=== PATIENT | female | born 1980 | race Caucasian/White ===

== ENCOUNTER 2016-11-02 12:21 | Emergency (ER) | payer BC ==
[2016-11-02 14:05] VITALS: BP 126/66; PULSE 96; TEMP 97.3; BMI 26.4
[2016-11-02] MEDS ORDERED: ACETAMINOPHEN 325 MG TABLET (FP) PO ONE (14:27)
[2016-11-02] MEDS ORDERED: ACETAMINOPHEN 325 MG TABLET (FP) ONE (14:30)
--- NOTE | 2016-11-02 14:37 | PDOC ---
History of Present Illness - General Chief Complaint: Injury Stated Complaint: ANKLE PAIN Time Seen by Provider: 11/02/16 14:11 History Source: Patient Exam Limitations: No Limitations - History of Present Illness Initial Comments: 11/02/16 14:27 36 yr female slipped on [place] steps yesterday and twisted right ankle. Pt is 29 weeks did not fall on her stomach. Pt initially was having some pelvic pain so she was cleared by Labor and delivery prior to arrival. pt has no vaginal discharge or pain. Occurred: reports: yesterday Severity: Yes: moderate Lower Extremity Pain Location: right: ankle Lower Ext. Injury Location - Specific Injury Location Ankle: right pain Past History - Past Medical History Allergies/Adverse Reactions: Allergies Allergy/AdvReac Type Severity Reaction Status Date / Time Penicillins Allergy Verified 11/02/16 12:25 Home Medications: Ambulatory Orders NK [No Known Home Medication] 11/02/16 Other medical history: none - Psycho/Social/Smoking Cessation Hx Anxiety: No Suicidal Ideation: No Smoking History: Never smoked Have you smoked in the past 12 months: No Information on smoking cessation initiated: No Hx Alcohol Use: No Drug/Substance Use Hx: No Substance Use Type: None Review of Systems - Review of Systems Able to Perform ROS?: Yes Is the patient limited Sami proficient: No Constitutional: No: Symptoms Reported Musculoskeletal: Yes: Symptoms Reported *Physical Exam - Vital Signs Last Vital Signs Temp Pulse Resp BP Pulse Ox 97.3 F L 96 H 18 126/66 100 11/02/16 14:02 11/02/16 14:02 11/02/16 14:02 11/02/16 14:02 11/02/16 14:02 - Physical Exam General Appearance: Yes: Nourished, Appropriately Dressed HEENT: positive: EOMI, ARPITA Neck: positive: Supple Respiratory/Chest: positive: Lungs Clear, Normal Breath Sounds Cardiovascular: positive: Regular Rhythm, Regular Rate Extremity: positive: Normal Capillary Refill, Normal Inspection, Normal Range of Motion, Tender (lateral maleoulus no specific bony tenderness, nv intact no swelling ). negative: Swelling Integumentary: positive: Normal Color, Dry, Warm Neurologic: positive: Fully Oriented, Alert, Normal Mood/Affect, Normal Response , Motor Strength 5/5 Medical Decision Making - Medical Decision Making 11/02/16 14:43 cc: twisted right ankle yesterday pt is 29 weeks no abd pain was cleared by L&D pt refused xray i agree we can watch and wait pt will elevate and apply ice, air cast and crutches non weight bearing pt will follow with the orthopedist next week pt understands if symptoms get worse she needs to return to ER for xray possible pt and her agree *DC/Admit/Observation/Transfer Diagnosis at time of Disposition: Ankle sprain Qualifiers: Encounter type: initial encounter Involved ligament of ankle: other ligament Laterality: right Qualified Code(s): S93.491A - Sprain of other ligament of right ankle, initial encounter - Discharge Dispostion Disposition: HOME Condition at time of disposition: Good - Referrals Referrals: Eddie Youssef MD [Staff Physician] - - Patient Instructions Additional Instructions: elevate your ankle and apply ice every 2hrs for 20 minutes for the next 2 days while awake take tylenol 650mg every 4hrs for pain as needed use the splint and the crutches for one week follow with or for follow up next week
== END 2016-11-02 14:54 | disposition home or self-care (01) ==
LOC: JERFT 12:21
DX: S93.402A Sprain of unspecified ligament of left ankle, initial encounter (principal); W10.8XXA Fall (on) (from) other stairs and steps, initial encounter; Y93.89 Activity, other specified; Y92.522 Railway station as the place of occurrence of the external cause; Z3A.29 29 weeks gestation of pregnancy
CPT/HCPCS: 99281-25

== ENCOUNTER 2017-06-26 21:55 | Emergency (ER) | payer BC ==
[2017-06-26 22:16] VITALS: BP 115/63; PULSE 124; TEMP 103; BMI 25.7
--- NOTE | 2017-06-26 22:26 | PDOC ---
History of Present Illness - General Chief Complaint: Cold Symptoms Stated Complaint: FEVER-104 Time Seen by Provider: 06/26/17 22:26 History Source: Patient Exam Limitations: No Limitations - History of Present Illness Initial Comments: 06/26/17 22:55 Patient is a 37-year-old female with no past medical history who presents to the emergency department today complaining of fevers, chills, nausea, headache for one day. Patient states that she was feeling unwell yesterday but did not have fevers. Today she states she felt very warm and took her temperature at home. She states it was 104 at that time. She states that overall she feels tired. She has been unable to keep food down. She is able to tolerate small amounts of liquids. Denies cough, runny nose, sore throat, difficulty breathing , wheezing, vomiting, diarrhea, frequency, urgency and hematuria. Patient did not receive her flu vaccine this year. Additionally, pt. states that she fell one week ago on her R elbow. She states that her elbow hurts when she leans on it. She is concerned that she may have broken it. Denies swelling, decreased range of motion, numbness/tingling, weakness in the arm. Past History - Travel Traveled outside of the country in the last 30 days: No Close contact w/someone who was outside of country & ill: No - Past Medical History Allergies/Adverse Reactions: Allergies Allergy/AdvReac Type Severity Reaction Status Date / Time Penicillins Allergy Verified 11/02/16 12:25 Home Medications: Ambulatory Orders Vit/Iron Fumarate/FA [ Tablet] 1 each PO DAILY 06/26/17 Anemia: No Asthma: No Cancer: No Cardiac Disorders: No CVA: No COPD: No DVT: No Dementia: No Diabetes: No Dialysis: No GI Disorders: No Disorders: No HTN: No Hypercholesterolemia: No Kidney Stones: No Liver Disease: No Psychiatric Problems: No Seizures: No Thyroid Disease: No Lung CA: No - Surgical History Abdominal Surgery: No Appendectomy: No Cardiac Surgery: No Cholecystectomy: No Gastric Stapling: No GI Surgery: No Lung Surgery: No Neurologic Surgery: No - Suicide/Smoking/Psychosocial Hx Smoking History: Never smoked Have you smoked in the past 12 months: No Information on smoking cessation initiated: No Hx Alcohol Use: No Drug/Substance Use Hx: No Substance Use Type: None Review of Systems - Review of Systems Able to Perform ROS?: Yes Comments:: 06/26/17 22:57 CONSTITUTIONAL: Present: Fever, chills, generalized weakness Absent: diaphoresis, malaise, loss of appetite HEENT: Absent: rhinorrhea, nasal congestion, throat pain, throat swelling, difficulty swallowing, mouth swelling, ear pain, eye pain, visual Changes CARDIOVASCULAR: Absent: chest pain, loss of consciousness, palpitations, irregular heart rate, peripheral edema RESPIRATORY: Absent: cough, shortness of breath, dyspnea with exertion, orthopnea, wheezing, stridor, hemoptysis GASTROINTESTINAL: Absent: abdominal pain, abdominal distension, nausea, vomiting, diarrhea, constipation, melena, hematochezia GENITOURINARY: Absent: dysuria, frequency, urgency, hesitancy, hematuria, flank pain, genital pain MUSCULOSKELETAL: Present: R elbow pain. Absent: myalgia, arthralgia, joint swelling SKIN: Absent: rash, itching, pallor HEMATOLOGIC/IMMUNOLOGIC: Absent: easy bleeding, easy bruising, lymphadenopathy, frequent infections ENDOCRINE: Absent: unexplained weight gain, unexplained weight loss, heat intolerance, cold intolerance NEUROLOGIC: Present: headache Absent: focal weakness or paresthesias, dizziness, unsteady gait, seizure, mental status changes, bladder or bowel incontinence PSYCHIATRIC: Absent: anxiety, depression, suicidal or homicidal ideation, hallucinations. Is the patient limited Mongolian proficient: No *Physical Exam - Vital Signs Last Vital Signs Temp Pulse Resp BP Pulse Ox 103 F H 124 H 20 115/63 97 06/26/17 22:10 06/26/17 22:10 06/26/17 22:10 06/26/17 22:10 06/26/17 22:10 - Physical Exam Comments: 06/26/17 22:59 GENERAL: Well developed, well nourished. Awake and alert x3. No acute distress, laying on hospital bed HEENT: Normocephalic, atraumatic. PERRLA, EOMI. No conjunctival pallor. Sclera are non- icteric. Conjunctivitis b/l. Moist mucous membranes. Oropharynx is clear. NECK: Supple. Full ROM. No JVD. Carotid pulses 2+ and symmetric, without bruits. No thyromegaly. No lymphadenopathy. CARDIOVASCULAR: Regular rate and rhythm. No murmurs, rubs, or gallops. Distal pulses are 2+ and symmetric. PULMONARY: No evidence of respiratory distress. Lungs clear to auscultation bilaterally. No wheezing, rales or rhonchi. ABDOMINAL: Soft. Non-tender. Non-distended. No rebound or guarding. No organomegaly. Normoactive bowel sounds. MUSCULOSKELETAL Normal range of motion at all joints. No bony deformities or tenderness. No CVA tenderness. EXTREMITIES: TTP of R elbow. ROM intact. PMS intact for R arm. No cyanosis. No clubbing. No edema. No calf tenderness. SKIN: Warm and dry. Normal capillary refill. No rashes. No jaundice. NEUROLOGICAL: Alert, awake, appropriate. Cranial nerves 2-12 intact. No deficits to light touch and temperature in face, upper extremities and lower extremities. No motor deficits in the in face, upper extremities and lower extremities. Normoreflexic in the upper and lower extremities. Normal speech. Toes are down- going bilaterally. Gait is normal without ataxia. PSYCHIATRIC: Cooperative. Good eye contact. Appropriate mood and affect. ED Treatment Course - LABORATORY CBC & Chemistry Diagram: 06/26/17 22:42 06/26/17 22:42 Medical Decision Making - Medical Decision Making 06/26/17 23:02 Patient is a 37-year-old female with no past medical history who presents to the emergency department with a 1 day of fevers, headaches, nausea and general weakness. Patient is not taking any medication for her symptoms. Most likely a viral etiology. Patient did not receive flu shot this year. 1.CBC, CMP, PT/INR, UA, UC, urine , influenza 2.IV fluids, Zofran, ofirmev 3.reevaluate 06/27/17 00:15 Influenza is negative at this time. No leukocytosis. Lab work shows hypokalemia of 3.4. Pt. told to increase her oral intake at home. Will PO trial at this time. Pt. reports feeling better. 06/27/17 00:24 Elbow x-ray is negative for fx. 06/27/17 00:56 Temp down to 100.0 F. Pt. reports feeling much better, tolerating PO. Will d/c home at this time. *DC/Admit/Observation/Transfer Diagnosis at time of Disposition: Viral respiratory illness - Discharge Dispostion Disposition: HOME Condition at time of disposition: Good Admit: No - Referrals Referrals: Ariel Hyde MD [Staff Physician] - - Patient Instructions Printed Discharge Instructions: DI for Viral Upper Respiratory Infection -- Adult Additional Instructions: You have an upper respiratory infection caused by a virus. Your flu test was negative today. Please drink plenty of fluids. Get lots of rest. Avoid kissing your child to avoid spreading the virus. Please take Tylenol 500mg -650mg every 4 hours, not to exceed 4,000mg a day as needed for fever. If you still have fever with Tylenol, you may alternate and take ibuprofen 600mg every 6 hours not to exceed 3,000mg a day. Follow up with your primary care doctor on Friday. Return to the ED if your fever is not controlled with tylenol or motrin, have worsening headaches, lightheadedness or any changes in your symptoms. - Post Discharge Activity
[2017-06-26] MEDS ORDERED: ACETAMINOPHEN 500 MG TABLET (FP) PO ONE (22:28)
[2017-06-26] MEDS ORDERED: ACETAMINOPHEN INJECTION 100 ML IVPB ONE (22:29)
[2017-06-26] MEDS ORDERED: ONDANSETRON 4 MG/2 ML VIAL IVPUSH ONE (22:32)
[2017-06-26] MEDS ORDERED: ONDANSETRON 4 MG/2 ML VIAL ONE (22:49)
[2017-06-26 22:52] LABS: BASOPHIL 0.3 % (0-2.0); MCH 29.6 pg (25.7-33.7); MCHC 33.8 g/dl (32.0-36.0); MEAN CELL VOLUME 87.6 fl (80-96); MEAN PLT VOLUME 9.3 fl (7.5-11.1); NEUTROPHILS 70.4 % (42.8-82.8); PLATELET COUNT 156 K/MM3 (134-434); RDW 12.9 % (11.6-15.6); WHITE BLOOD COUNT 7.9 K/mm3 (4.0-10.0)
--- NOTE | 2017-06-26 23:11 | PDOC ---
*Physical Exam - Vital Signs Last Vital Signs Temp Pulse Resp BP Pulse Ox 103 F H 124 H 20 115/63 97 06/26/17 22:10 06/26/17 22:19 06/26/17 22:19 06/26/17 22:10 06/26/17 22:19 ED Treatment Course - LABORATORY CBC & Chemistry Diagram: 06/26/17 22:42 06/26/17 22:42 - ADDITIONAL ORDERS Additional order review: Laboratory Results 06/26/17 22:42 Urine HCG, Qual Negative 06/26/17 22:42 RBC 4.41 MCV 87.6 MCHC 33.8 RDW 12.9 MPV 9.3 Neutrophils % 70.4 Lymphocytes % 15.5 Monocytes % 13.8 H Eosinophils % 0.0 Basophils % 0.3 - Medications Given in the ED: ED Medications Discontinued Medications Generic Name Dose Route Start Last Admin Trade Name Freq PRN Reason Stop Dose Admin Acetaminophen 1,000 mg 06/26/17 22:28 06/26/17 22:48 Tylenol - PO 06/26/17 22:29 1,000 mg ONCE ONE Administration Ondansetron HCl 4 mg 06/26/17 22:32 06/26/17 22:50 Zofran Injection IVPUSH 06/26/17 22:33 4 mg ONCE ONE Administration Medical Decision Making - Medical Decision Making 06/26/17 23:11 agree with care from KENDRICK Rees
[2017-06-26 23:19] LABS: URINE APPEARANCE SLCLOUDY; URINE BILIRUBIN NEGATIVE (NEGATIVE); URINE BLOOD 1+ (NEGATIVE); URINE COLOR YELLOW; URINE GLUCOSE (UA) NEGATIVE (NEGATIVE); URINE KETONE 1+ (NEGATIVE); URINE NITRITE NEGATIVE (NEGATIVE); URINE UROBILINOGEN NEGATIVE mg/dL (0.2-1.0)
[2017-06-26 23:20] LABS: URINE PROTEIN 1+ (NEGATIVE)
[2017-06-26 23:22] LABS: URINE MUCUS RARE; URINE RBC 109 /hpf (0-3); URINE WBC 1 /hpf (3-5)
[2017-06-26 23:23] LABS: ALBUMIN 3.6 g/dl (3.4-5.0); ANION GAP 7 (8-16); BILIRUBIN,TOTAL 0.3 mg/dL (0.2-1.0); CALCIUM 7.8 mg/dL (8.5-10.1); CO2 26 mmol/L (21-32); GLUCOSE,RANDOM 98 mg/dL (74-106); SGOT/AST 15 U/L (15-37); SGPT/ALT 17 U/L (12-78); TOT PROT 7.1 g/dl (6.4-8.2)
[2017-06-26 23:24] LABS: ALK PHOS 84 U/L (45-117)
[2017-06-27] MEDS ORDERED: IBUPROFEN 600 MG TABLET (FP) PO ONE ×2 (01:00→01:10)
[2017-06-27 09:40] LABS: URINE LEUK ESTERASE Negative (NEGATIVE)
== END 2017-06-27 01:01 | disposition home or self-care (01) ==
LOC: JER 21:55
PROC: 3E033GC Introduction of Other Therapeutic Substance into Peripheral Vein, Percutaneous Approach (ICD-10-PCS; principal; 2017-06-26)
DX: J06.9 Acute upper respiratory infection, unspecified (principal); B97.89 Other viral agents as the cause of diseases classified elsewhere
CPT/HCPCS: 36415; 73070-TC-RT; 80053; 81003; 81015; 84703; 85025; 87804; 99282-25